=== PATIENT | female | born 1970 | race Caucasian/White ===

== ENCOUNTER → 2020-01-16 11:00 | Outpatient (BNVA) | payer BC, SELFPAY | PROVIDERS: Family Provider Nurse Practitioner Family; PCP Nurse Practitioner Family; Visit Provider Nurse Practitioner Family | DX: Z51.81 Encounter for therapeutic drug level monitoring (principal); R07.9 Chest pain, unspecified; J06.9 Acute upper respiratory infection, unspecified; F41.9 Anxiety disorder, unspecified; R07.82 Intercostal pain | CPT/HCPCS: 80048; 80076; 85025 ==

== ENCOUNTER → 2020-05-11 08:45 | Outpatient (BNVA) | payer BC, SELFPAY | PROVIDERS: Family Provider Nurse Practitioner Family; PCP Nurse Practitioner Family; Visit Provider Nurse Practitioner Family | DX: Z79.899 Other long term (current) drug therapy (principal); R68.89 Other general symptoms and signs | CPT/HCPCS: 80076 ==

== ENCOUNTER → 2020-09-26 15:03 | Outpatient (BNVA) | payer BC, SELFPAY | PROVIDERS: Family Provider Nurse Practitioner Family; PCP Nurse Practitioner Family; Visit Provider Registered Nurse | DX: Z11.59 Encounter for screening for other viral diseases (principal) | CPT/HCPCS: 87635 ==

== ENCOUNTER → 2020-12-04 09:57 | Outpatient (BNVA) | payer OTHER, SELFPAY | PROVIDERS: Family Provider Nurse Practitioner Family; PCP Nurse Practitioner Family; Visit Provider Family Medicine | DX: Z20.828 Contact with and (suspected) exposure to other viral communicable diseases (principal) | CPT/HCPCS: 87635 ==

== ENCOUNTER → 2021-08-21 09:21 | Outpatient (BNVA) | payer SELFPAY | PROVIDERS: Family Provider Nurse Practitioner Family; PCP Nurse Practitioner Family; Visit Provider Nurse Practitioner Family | DX: R20.0 Anesthesia of skin (principal); R20.2 Paresthesia of skin; R53.83 Other fatigue; F48.8 Other specified nonpsychotic mental disorders | CPT/HCPCS: 80048; 82607; 84443 ==

== ENCOUNTER → 2022-01-30 11:37 | Outpatient (BNVA) | payer OTHER, SELFPAY | PROVIDERS: Family Provider Nurse Practitioner Family; PCP Nurse Practitioner Family; Visit Provider Emergency Medicine | DX: R68.89 Other general symptoms and signs (principal) | CPT/HCPCS: 87400 ==

== ENCOUNTER → 2022-04-04 12:14 | Outpatient (BNVA) | payer OTHER, SELFPAY | PROVIDERS: Family Provider Nurse Practitioner Family; PCP Nurse Practitioner Family; Visit Provider Emergency Medicine | DX: M65.311 Trigger thumb, right thumb (principal); M25.511 Pain in right shoulder; G89.29 Other chronic pain; M25.512 Pain in left shoulder | CPT/HCPCS: 73030; 73130 ==

== ENCOUNTER 2022-05-29 11:40 | Day surgery (SDC) | payer OTHER, SELFPAY ==
[2022-05-29] MEDS: sodium chloride 0.9% 1,000 ML 30 ML IV (12:28)
--- NOTE | 2022-05-29 12:41 | P.ANESASSM_ITS ---
Pre-Anesthetic Assessment Height/Weight: Height 1.7 m Preop Diagnosis: Right Carpal tunnel syndrome, Trigger thumb And middle finger Operation Date: 05/29/22 13:20 Proposed Procedures p Right carpal tunnel release:[id number],Right trigger finger of right thumb release:[id number] trigger finger of right middle finger: 39085,G5 6.01,M65.311,M65.331(Right) - Willam Franco MD Familial anesthetic complications: NOne Was Beta Esthela taken within 24 hours: N/A Was Clonidine taken within 24 hours: N/A Last intake: Intake Last Liquid Date 05/28/22 Last Liquid Time 21:00 Last Solid Date 05/28/22 Last Solid Time 18:00 Social Tobacco and No alcohol Exam alert, oriented x 3, clear to auscultation bilaterally and regular rate & rhythm Airway Mallampati: Class II Dentition: loose (bottom teeth loose) Pulmonary H xacute bronchitis CV/HEM Hypertension None reported Hepatic None reported GI Gastroesophageal Reflux Disease Metabolic None reported Musc/skel None reported Neuropsych Neuropathy Anesthetic Plan ASA status: 2 Anesthesia: Regional (specify below) Risk of > 500 ml blood loss (7ml/kg in children): No Medications/Allergies Home Medications Medication Instructions Recorded Confirmed Last Taken Type sucralfate 1 gram tablet (Carafate) 1 g PO BID #30 tab 06/11/21 05/28/22 Unknown Rx amitriptyline 25 mg tablet 25 mg PO .at night 90 Days #90 tab 11/26/21 05/29/22 Unknown Rx atenolol 100 mg tablet 100 mg PO DAILY 90 Days #90 tab 11/26/21 05/29/22 05/29/22 Rx cyclobenzaprine 5 mg tablet 10 mg PO TID PRN #30 tab MDD 6 tabs 11/26/21 05/28/22 Unknown Rx hydrochlorothiazide 12.5 mg capsule 12.5 mg PO DAILY 90 Days #90 cap 11/26/21 05/29/22 05/29/22 Rx omeprazole 40 mg capsule,delayed 40 mg PO DAILY 90 Days #90 cap 11/26/21 05/29/22 05/28/22 Rx release diclofenac sodium 50 mg 50 mg PO BID #60 tab 04/04/22 05/28/22 Unknown Rx tablet,delayed release gabapentin 100 mg capsule 100 mg PO BID #60 cap 04/18/22 05/29/22 05/28/22 Rx ondansetron 4 mg disintegrating 4 mg PO Q6H PRN #12 tab 04/22/22 05/28/22 Unknown Rx tablet tizanidine 2 mg tablet 2 mg PO BID PRN #20 tab 04/22/22 05/28/22 Unknown Rx zolmitriptan 5 mg disintegrating 5 mg PO Q2H PRN #10 tab 04/22/22 05/28/22 Unknown Rx tablet Allergies Allergy/AdvReac Type Severity Reaction Status Date / Time No Known Allergies Allergy Verified 05/20/22 14:57 Current Medications Generic Name Dose Route Start Last Admin Trade Name Freq PRN Reason Stop Dose Admin Sodium Chloride 1,000 mls @ 30 mls/hr 05/29/22 12:00 05/29/22 12:28 Sodium Chloride 0.9% IV 05/30/22 11:59 30 mls/hr .Q24H CELENA Administration PFSH Anesthesia Medical History Attention or concentration deficit GERD (gastroesophageal reflux disease) Hypertension Medication monitoring encounter Puncture wound of finger Social History Smoking and tobacco status: current every day smoker Female Reproductive History Spontaneous abortions: No Data Anesthesia Cardiac Studies: No Data to Display
--- NOTE | 2022-05-29 13:09 | W.PM.OPSUD ---
Surgery/Procedure H&P Update DATE OF PROCEDURE: May 29, 2022 DATE H&P PERFORMED: 05/20/22 H&P UPDATE INFORMATION: I have reviewed H&P completed within last 30 days PREOP DIAGNOSIS: Right Carpal tunnel syndrome, Trigger thumb And middle finger PLANNED PROCEDURE: Operation Date: 05/29/22 13:20 Proposed Procedures p Right carpal tunnel release:48574,Right trigger finger of right thumb release:88579Nqisl trigger finger of right middle finger: 46104,G56.01,M65.311,M65.331(Right) - Willam Franco MD
[2022-05-29] MEDS: ceFAZolin 2,000 MG in sodium chloride 0.9% (plus) 50 ML 100 MG IV (13:15)
--- NOTE | 2022-05-29 14:08 | PM.OP ---
Operative Report Date of procedure: May 29, 2022 Pre-op diagnosis: Preop Diagnosis Right Carpal tunnel syndrome, Trigger thumb And middle finger Procedure done: Right carpal tunnel release Right thumb trigger thumb release Right middle finger trigger finger release Estimated blood loss (mL): 2 Tourniquet time (min): 26 Findings: No masses or space-occupying lesions were seen within the carpal tunnel. No degeneration was seen in the flexed tendons at the level of the A1 pulleys of the thumb or long finger. The tendon sheath were healthy without obvious degenerative Condition: stable Disposition: PACU Procedure: Patient was taken to the operating room and anesthesia provided by the anesthesia service. She was prepped and draped with the arm exposed. A timeout was performed. A 3 cm long incision was made in line with the fourth ray from the distal edge of the carpal tunnel extending proximally. The subcutaneous fat and palmar fascia was divided with a scalpel blade. Under loupe magnification the ulnar neurovascular bundle was identified distally. A hemostat could be passed under the transverse carpal ligament allowing the distal 25% to be divided. A slotted guide was then passed beneath the transverse carpal ligament and the middle 50% divided. Blunt scissors were then passed over the guide freeing the proximal ligament. A transverse incision was made over the level of a 1 chriss of the thumb in the palm over a distance of approximately a centimeter and a half. Under loupe magnification blunt dissection was accomplished down to the A1 chriss. With adequate visualization a scalpel was used to divide the central 4 mm of that structure. Blunt scissors were then used to extend the release approximately 5 mm proximally and 5 mm distally. Tendons were pulled the road and inspected to assure there healthy. A 1 centimeter and a half. Under loupe magnification blunt dissection was accomplished down to the A1 chriss of the long finger With adequate visualization a scalpel was used to divide the central 4mm of that structure. Blunt scissors were then used to extend the release approximately 5 mm proximally and 5 mm distally. Tendons were pulled the road and inspected to assure there healthy. Carpal tunnel wound edges were infiltrated with 10 cc of a half percent Marcaine solution. Trigger finger incisions were infiltrated with 3 cc of half percent Marcaine. Skin edges were reapproximated with 3-0 Prolene. Sterile dressings were applied. The patient was taken to the recovery room in stable condition
[2022-05-29 14:09] VITALS: BP 106/58; PULSE 73; RESP 18; TEMP 36.2; O2SAT 95
[2022-05-29 14:14] VITALS: BP 116/68; PULSE 74; RESP 17; O2SAT 94
[2022-05-29 14:20] VITALS: BP 135/61; PULSE 68; RESP 18; O2SAT 95
[2022-05-29 14:25] VITALS: BP 114/74; PULSE 66; RESP 18; TEMP 36.2; O2SAT 95
[2022-05-29 14:37] VITALS: BP 134/73; PULSE 62; RESP 18; TEMP 36.2; O2SAT 95
[2022-05-29] MEDS: HYDROcodone-acetaminophen 5-325 mg Tablet 1 TAB PO (15:05)
[2022-05-29 15:32] VITALS: BMI 25.0
--- NOTE | 2022-05-29 16:38 | ANE.PACU2 ---
Inpatient post-anesthesia follow up: Airway intact: Yes Vital signs: Temperature 97.2 F Pulse Rate 62 Respiratory Rate 18 Blood Pressure 134/73 Pulse Oximetry 95 Oxygen Delivery Me thod Room Air Oxygen Flow Rate Fraction of Inspir ed Oxygen Hydration adequate: Yes Nausea and vomiting: No Pain level: 1 Mental status: Baseline
== END 2022-05-29 15:20 | disposition home or self-care (01) ==
PROVIDERS: PCP Nurse Practitioner Family; Visit Provider Orthopaedic Surgery
PROC: (CPT 64721; principal; 2022-05-29 13:10)
DX: G56.01 Carpal tunnel syndrome, right upper limb (principal); M65.331 Trigger finger, right middle finger; M65.311 Trigger thumb, right thumb; I10 Essential (primary) hypertension; K21.9 Gastro-esophageal reflux disease without esophagitis; F17.210 Nicotine dependence, cigarettes, uncomplicated
CPT/HCPCS: 26055 ×2; 64721; J2704; J3010; J3490; J7030

== ENCOUNTER 2022-06-12 10:33 | Day surgery (SDC) | payer OTHER, SELFPAY ==
[2022-06-11 09:46] VITALS: BMI 25.0
[2022-06-12] VITALS (8 sets, daily range): BP systolic 131–150; BP diastolic 70–94; PULSE 6–78; RESP 14–18; TEMP 36.1–36.6; O2SAT 95–98
[2022-06-12] MEDS: sodium chloride 0.9% 1,000 ML 30 ML IV (10:57)
--- NOTE | 2022-06-12 12:03 | ANES.PREANE2 ---
Pre-Anesthetic Assessment Height/Weight: Height 1.7 m Weight 72.575 kg Temp Pulse Resp BP Pulse Ox 97.6 F 72 18 150/94 97 06/12/22 10:46 06/12/22 10:46 06/12/22 10:46 06/12/22 10:46 06/12/22 10:46 Preop Diagnosis: Left carpal tunnel syndrome Operation Date: 06/12/22 12:10 Proposed Procedures p Left Carpal Tunnel Release [id number],G56.00(Left) - Willam Franco MD Familial anesthetic complications: none Was Beta Esthela taken within 24 hours: Yes Was Clonidine taken within 24 hours: N/A Last intake: Intake Last Liquid Date 06/11/22 Last Liquid Time 20:00 Last Solid Date 06/11/22 Last Solid Time 20:00 Social Tobacco and No alcohol Exam alert, oriented x 3, clear to auscultation bilaterally and regular rate & rhythm Airway Submandibular: within normal limits Cervical ROM: within normal limits Mallampati: Class II Dentition: full CV/HEM Hypertension GI Gastroesophageal Reflux Disease Anesthetic Plan ASA status: 2 Anesthesia: MAC and Regional (specify below) (Em cruz) Medications/Allergies Home Medications Medication Instructions Recorded Confirmed Last Taken Type sucralfate 1 gram tablet (Carafate) 1 g PO BID #30 tab 06/11/21 06/11/22 06/11/22 Rx amitriptyline 25 mg tablet 25 mg PO .at night 90 Days #90 tab 11/26/21 06/12/22 06/10/22 Rx atenolol 100 mg tablet 100 mg PO DAILY 90 Days #90 tab 11/26/21 06/12/22 06/11/22 Rx cyclobenzaprine 5 mg tablet 10 mg PO TID PRN #30 tab MDD 6 tabs 11/26/21 06/12/22 06/11/22 Rx hydrochlorothiazide 12.5 mg capsule 12.5 mg PO DAILY 90 Days #90 cap 11/26/21 06/12/22 06/11/22 Rx omeprazole 40 mg capsule,delayed 40 mg PO DAILY 90 Days #90 cap 11/26/21 06/11/22 06/11/22 Rx release diclofenac sodium 50 mg 50 mg PO BID #60 tab 04/04/22 06/12/22 06/11/22 Rx tablet,delayed release gabapentin 100 mg capsule 100 mg PO BID #60 cap 04/18/22 06/12/22 06/11/22 Rx ondansetron 4 mg disintegrating 4 mg PO Q6H PRN #12 tab 04/22/22 06/11/22 06/11/22 Rx tablet tizanidine 2 mg tablet 2 mg PO BID PRN #20 tab 04/22/22 06/11/22 06/11/22 Rx zolmitriptan 5 mg disintegrating 5 mg PO Q2H PRN #10 tab 04/22/22 06/11/22 06/11/22 Rx tablet hydrocodone 5 mg-acetaminophen 325 1 tab PO Q4H #20 tab 05/29/22 06/11/22 06/11/22 Rx mg tablet Allergies Allergy/AdvReac Type Severity Reaction Status Date / Time No Known Allergies Allergy Verified 06/03/22 13:36 Current Medications Generic Name Dose Route Start Last Admin Trade Name Freq PRN Reason Stop Dose Admin Sodium Chloride 1,000 mls @ 30 mls/hr 06/12/22 10:45 06/12/22 10:57 Sodium Chloride 0.9% IV 06/13/22 10:44 30 mls/hr .Q24H CELENA Administration PFSH Anesthesia Medical History Attention or concentration deficit GERD (gastroesophageal reflux disease) Hypertension Medication monitoring encounter Puncture wound of finger Social History Smoking and tobacco status: current every day smoker Female Reproductive History Spontaneous abortions: No Data Anesthesia Cardiac Studies: No Data to Display
--- NOTE | 2022-06-12 12:12 | W.PM.OPSUD ---
Surgery/Procedure H&P Update DATE OF PROCEDURE: June 12, 2022 DATE H&P PERFORMED: 05/20/22 H&P UPDATE INFORMATION: I have reviewed H&P completed within last 30 days PREOP DIAGNOSIS: Left carpal tunnel syndrome PLANNED PROCEDURE: Operation Date: 06/12/22 12:10 Proposed Procedures p Left Carpal Tunnel Release 16625,G56.00(Left) - Willam Franco MD
[2022-06-12] MEDS: ceFAZolin 2,000 MG in sodium chloride 0.9% (plus) 50 ML 100 MG IV (12:13)
--- NOTE | 2022-06-12 12:58 | P.OP_ITS ---
Operative Report Date of procedure: June 12, 2022 Pre-op diagnosis: Preop Diagnosis Left carpal tunnel syndrome Post-op diagnosis: same Post-op diagnosis: Same Procedure done: Left carpal tunnel release Pathology: none sent Surgeon: Willam Franco Anesthesia: Nerve Block (Wagoner block) Estimated blood loss (mL): 2 Tourniquet time (min): 20 Findings: No masses or space-occupying lesions were seen within the carpal tunnel Condition: stable Disposition: PACU Procedure: Patient was taken to the operating room and anesthesia provided by the anesthesia service. She was prepped and draped with the arm exposed. A timeout was performed. A 3 cm long incision was made in line with the fourth ray from the distal edge of the carpal tunnel extending proximally. The subcutaneous fat and palmar fascia was divided with a scalpel blade. Under loupe magnification the ulnar neurovascular bundle was identified distally. A hemostat could be passed under the transverse carpal ligament allowing the distal 25% to be divided. A slotted guide was then passed beneath the transverse carpal ligament and the middle 50% divided. Blunt scissors were then passed over the guide freeing the proximal ligament. The tourniquet was deflated. Hemostasis provided with electrocautery. Wound edges were infiltrated with 10 cc of a half percent Marcaine solution. Skin edges were reapproximated with 3-0 Prolene. Sterile dressings were applied. The patient was taken to the recovery room in stable condition
--- NOTE | 2022-06-12 16:19 | ANE.PACU2 ---
Inpatient post-anesthesia follow up: Airway intact: Yes Vital signs: Temperature 97.8 F Pulse Rate 63 Respiratory Rate 14 Blood Pressure 138/89 Pulse Oximetry 98 Oxygen Delivery Me thod Room Air Oxygen Flow Rate Fraction of Inspir ed Oxygen Hydration adequate: Yes Nausea and vomiting: No Pain level: 1 Mental status: Baseline
== END 2022-06-12 13:55 | disposition home or self-care (01) ==
PROVIDERS: PCP Nurse Practitioner Family; Visit Provider Orthopaedic Surgery
PROC: (CPT 64721; principal; 2022-06-12 12:00)
DX: G56.02 Carpal tunnel syndrome, left upper limb (principal); K21.9 Gastro-esophageal reflux disease without esophagitis; I10 Essential (primary) hypertension; F17.210 Nicotine dependence, cigarettes, uncomplicated
CPT/HCPCS: 64721; J2250; J2704; J3490; J7030

== ENCOUNTER → 2022-06-25 08:50 | Outpatient (BNVA) | payer OTHER, SELFPAY | PROVIDERS: PCP Nurse Practitioner Family; Referring Provider Nurse Practitioner Family; Visit Provider Nurse Practitioner Family | DX: M25.571 Pain in right ankle and joints of right foot (principal); Z79.899 Other long term (current) drug therapy; G89.29 Other chronic pain; M25.572 Pain in left ankle and joints of left foot | CPT/HCPCS: 73610; 82977; 83615; 84450; 84460; 86038; 86431 ==

== ENCOUNTER → 2022-08-07 14:26 | Outpatient (BNVA) | payer OTHER, SELFPAY | PROVIDERS: PCP Nurse Practitioner Family; Referring Provider Nurse Practitioner Family; Visit Provider Internal Medicine | DX: I10 Essential (primary) hypertension (principal) | CPT/HCPCS: 72040; 80053; 82306; 82310; 82533; 82550; 82607; 82728; 82784; 83516; 83540; 83735; 83970; 84100; 84443; 84550; 85025; 85651; 86140; 86160; 86162; 86200; 86235; 86255; 86376; 86431; 86704; 86803; 87340 ==

== ENCOUNTER → 2022-09-10 09:06 | Outpatient (BNVA) | payer OTHER, SELFPAY | PROVIDERS: PCP Nurse Practitioner Family; Visit Provider Emergency Medicine | DX: R68.89 Other general symptoms and signs (principal) | CPT/HCPCS: 87400 ==

== ENCOUNTER 2022-10-27 08:37 | Outpatient (CLI) | payer OTHER, SELFPAY ==
--- NOTE | 2022-10-27 08:51 | XR_ITS ---
WS: [id number] EXAMINATION: XR chest 2V* [id number] HISTORY: Dry cough for the past 2 weeks ORDER DATE: 10/27/2022 8:51 AM COMPARISON: 10/04/2019 FINDINGS: The lungs are clear of infiltrate. The cardiac and mediastinal outlines are unremarkable. There are no significant pleural effusions . No significant abnormalities are noted in the spine or remainder of the bony thorax. XR/XR chest 2V* [id number] IMPRESSION: NO ACUTE PULMONARY CHANGE.
== END 2022-10-27 08:38 | disposition home or self-care (01) ==
PROVIDERS: PCP Nurse Practitioner Family; Visit Provider Nurse Practitioner Family
DX: R05.9 Cough, unspecified (principal)
CPT/HCPCS: 71046

== ENCOUNTER → 2022-12-08 13:42 | Outpatient (BNVA) | payer OTHER, SELFPAY | PROVIDERS: PCP Nurse Practitioner Family; Visit Provider Nurse Practitioner Family | DX: R76.8 Other specified abnormal immunological findings in serum (principal); Z79.899 Other long term (current) drug therapy | CPT/HCPCS: 80076 ==

== ENCOUNTER 2023-02-03 11:56 | Outpatient (CLI) | payer OTHER, SELFPAY | END 2023-02-03 11:57 | disposition home or self-care (01) | LOC: SLEEP 02-04 11:57 | PROVIDERS: PCP Nurse Practitioner Family; Visit Provider Nurse Practitioner Family | DX: R06.83 Snoring (principal); R53.83 Other fatigue; G47.33 Obstructive sleep apnea (adult) (pediatric) | CPT/HCPCS: G0399 ==

== ENCOUNTER → 2023-02-10 14:08 | Outpatient (BNVA) | payer OTHER, SELFPAY | PROVIDERS: PCP Nurse Practitioner Family; Visit Provider Nurse Practitioner Family | DX: J02.9 Acute pharyngitis, unspecified (principal); R05.9 Cough, unspecified; K21.00 Gastro-esophageal reflux disease with esophagitis, without bleeding; J06.9 Acute upper respiratory infection, unspecified; I10 Essential (primary) hypertension | CPT/HCPCS: 87426; 87880 ==

== ENCOUNTER → 2023-09-01 10:59 | Outpatient (BNVA) | payer OTHER, SELFPAY | PROVIDERS: PCP Nurse Practitioner Family; Visit Provider Nurse Practitioner Family | DX: R25.2 Cramp and spasm (principal); I10 Essential (primary) hypertension; R53.83 Other fatigue | CPT/HCPCS: 80053; 80061; 82306; 83735; 84443 ==

== ENCOUNTER 2023-11-26 06:40 | Outpatient (CLI) | payer OTHER, SELFPAY ==
--- NOTE | 2023-11-26 07:15 | MR_ITS ---
WS: [id number] MRI HEAD WITH CONTRAST TECHNIQUE: Sagittal T1, T2 axial, T2 axial FLAIR, axial susceptibility weighted imaging, axial diffus ion weighted images, and coronal T2 images were obtained. Pre and post-T1 axial and post T1 coronal i mages. ADC and FSPGR images. CLINICAL INFORMATION: R51.9 - Headache, unspecified COMPARISON: None. FINDINGS: No evidence of restricted diffusion to suggest acute ischemia. Ventricular system and basilar cistern s are patent. Minimal small vessel changes. No significant parenchymal volume loss. Normal posterior fossa. Normal vascular flow voids at the skull base. No extra-axial fluid collections. No evidence of mass or mass effect. No hemosiderin on susceptibly weighted images. Temporal lobes and hippocampal f ormations are normal in appearance. Normal optic chiasm and pituitary infundibulum. No abnormal gadol inium enhancement. Incidental cerebellar tonsillar ectopia. IMPRESSION: 1. No evidence of restricted diffusion to suggest acute ischemia. 2. Mild small vessel changes. No significant parenchymal volume loss. 3. No abnormal gadolinium enhancement. 4. No hemosiderin on susceptibly weighted images. 5. Incidental mild cerebellar tonsillar ectopia. 6. Mild disc bulging the upper cervical spine at C3-C4. This could be further evaluated with cervica l spine MRI.
[2023-11-26] MEDS: gadobenate dimeglumine 20 mL vial IV (07:45)
== END 2023-11-26 06:41 | disposition home or self-care (01) ==
LOC: RAD 06:40
PROVIDERS: PCP Nurse Practitioner Family; Visit Provider Nurse Practitioner Family
DX: R51.9 Headache, unspecified (principal)
CPT/HCPCS: 70553; A9577

== ENCOUNTER → 2023-12-15 09:13 | Outpatient (BNVA) | payer OTHER, SELFPAY | PROVIDERS: PCP Nurse Practitioner Family; Visit Provider Nurse Practitioner Family | DX: R05.9 Cough, unspecified (principal); R50.9 Fever, unspecified | CPT/HCPCS: 87400; 87426 ==

== ENCOUNTER → 2023-12-22 10:49 | Outpatient (BNVA) | payer OTHER, SELFPAY | PROVIDERS: PCP Nurse Practitioner Family; Visit Provider Nurse Practitioner Family | DX: U07.1 COVID-19 (principal); Z20.822 Contact with and (suspected) exposure to COVID-19 | CPT/HCPCS: 87400; 87426 ==

== ENCOUNTER → 2024-02-17 08:09 | Outpatient (BNVA) | payer OTHER, SELFPAY | PROVIDERS: PCP Nurse Practitioner Family; Visit Provider Nurse Practitioner Family | DX: E78.5 Hyperlipidemia, unspecified (principal); I10 Essential (primary) hypertension; E55.9 Vitamin D deficiency, unspecified | CPT/HCPCS: 80053; 80061; 82306 ==

== ENCOUNTER → 2024-08-17 08:18 | Outpatient (BNVA) | payer MEDICAID, SELFPAY | PROVIDERS: PCP Nurse Practitioner Family; Visit Provider Nurse Practitioner Family | DX: I10 Essential (primary) hypertension (principal); M25.50 Pain in unspecified joint | CPT/HCPCS: 80053; 80061; 84439; 84443; 86038; 86431 ==

== ENCOUNTER → 2024-08-26 08:41 | Outpatient (BNVA) | payer MEDICAID, SELFPAY | PROVIDERS: PCP Nurse Practitioner Family; Visit Provider Nurse Practitioner Family | DX: R73.9 Hyperglycemia, unspecified (principal) | CPT/HCPCS: 83036 ==

== ENCOUNTER → 2024-09-08 12:00 | Outpatient (BNVA) | payer MEDICAID, SELFPAY | PROVIDERS: PCP Nurse Practitioner Family; Referring Provider Nurse Practitioner Family; Visit Provider Psychiatry & Neurology Neurology | DX: G43.011 Migraine without aura, intractable, with status migrainosus (principal); R41.3 Other amnesia; G47.30 Sleep apnea, unspecified; M50.30 Other cervical disc degeneration, unspecified cervical region | CPT/HCPCS: 99212; 99214 ==

== ENCOUNTER → 2024-09-15 14:37 | Outpatient (BNVA) | payer MEDICAID, SELFPAY | PROVIDERS: PCP Nurse Practitioner Family; Visit Provider Orthopaedic Surgery | DX: M50.30 Other cervical disc degeneration, unspecified cervical region (principal); G89.29 Other chronic pain | CPT/HCPCS: 72050 ==

== ENCOUNTER → 2024-12-05 14:42 | Outpatient (BNVA) | payer MEDICAID, SELFPAY | PROVIDERS: PCP Nurse Practitioner Family; Visit Provider Nurse Practitioner Family | DX: I10 Essential (primary) hypertension (principal); E11.9 Type 2 diabetes mellitus without complications | CPT/HCPCS: 80053; 80061; 83036 ==

== ENCOUNTER 2025-05-01 14:18 | Outpatient (CLI) | payer MEDICAID, SELFPAY ==
--- NOTE | 2025-05-01 14:22 | XRR_ITS ---
PROCEDURE INFORMATION: Exam: XR Right Knee Exam date and time: 05/01/2025 2:36 PM Age: 54 years old Clinical indication: Pain; Knee; Right; Additional info: M25.561 - pain in right knee TECHNIQUE: Imaging protocol: Radiologic exam of the right knee. Views: 3 views. COMPARISON: CR XR ankle RT min 3V* [id number] 06/25/2022 8:58 AM FINDINGS: Bones/joints: Alignment is normal. Joint spaces are preserved. No acute fracture. No osteophytes. No joint effusion. Soft tissues: Visible soft tissues are unremarkable. XR/XR knee RT 3V* [id number] IMPRESSION: No pathologic findings.
--- NOTE | 2025-05-01 14:22 | XRR_ITS ---
PROCEDURE INFORMATION: Exam: XR Left Knee Exam date and time: 05/01/2025 2:36 PM Age: 54 years old Clinical indication: Pain; Knee; Left; Additional info: M25.569 - pain in unspecified knee TECHNIQUE: Imaging protocol: Radiologic exam of the left knee. Views: 3 views. COMPARISON: CR XR ankle LT min 3V* [id number] 06/25/2022 9:01 AM FINDINGS: Bones/joints: Alignment is normal. Joint spaces are preserved. No acute fracture. No osteophytes. No joint effusion. Soft tissues: Visible soft tissues are unremarkable. XR/XR knee LT 3V* [id number] IMPRESSION: No pathologic findings.
== END 2025-05-01 14:19 | disposition home or self-care (01) ==
LOC: RAD 14:20
PROVIDERS: PCP Nurse Practitioner Family; Visit Provider Nurse Practitioner Family
DX: M25.561 Pain in right knee (principal); M25.562 Pain in left knee; I10 Essential (primary) hypertension; M25.59 Pain in other specified joint
CPT/HCPCS: 73562; 80053; 80061; 84550; 86038; 86431

== ENCOUNTER → 2025-05-10 09:01 | Outpatient (BNVA) | payer MEDICAID, SELFPAY | PROVIDERS: PCP Nurse Practitioner Family; Visit Provider Nurse Practitioner Family | DX: E11.9 Type 2 diabetes mellitus without complications (principal) | CPT/HCPCS: 83036 ==

== ENCOUNTER 2025-05-11 09:55 | Outpatient (CLI) | payer MEDICAID, SELFPAY ==
--- NOTE | 2025-05-11 10:20 | MM_ITS ---
WS: [id number] BILATERAL SCREENING DIGITAL TOMOSYNTHESIS MAMMOGRAM WITH CAD HISTORY: Z12.39 - Encounter for other screening for malignant neop... COMPARISON: None available. Bilateral CC and MLO views with tomosynthesis and synthetic mammography submitted. Computer aided detection analyzed. Breast composition: There are scattered areas of fibroglandular density. No suspicious masses, microcalcifications or architectural distortion. Benign calcification RIGHT retroareolar region. No suspicious grouping of calcifications. MM/MM scr BI tomosynthesis [id number] IMPRESSION: BI-RADS: 2 - Benign. FOLLOW UP: 1 Year Follow-up
== END 2025-05-11 09:56 | disposition home or self-care (01) ==
PROVIDERS: PCP Nurse Practitioner Family; Visit Provider Nurse Practitioner Family
DX: Z12.39 Encounter for other screening for malignant neoplasm of breast (principal); M25.561 Pain in right knee; Z12.31 Encounter for screening mammogram for malignant neoplasm of breast; M25.562 Pain in left knee; R92.323 Mammographic fibroglandular density, bilateral breasts; G89.29 Other chronic pain; M22.2X1 Patellofemoral disorders, right knee; M22.2X2 Patellofemoral disorders, left knee
CPT/HCPCS: 73560; 73565; 77063; 77067

== ENCOUNTER → 2025-08-29 09:54 | Outpatient (BNVA) | payer OTHER, SELFPAY | PROVIDERS: PCP Nurse Practitioner Family; Visit Provider Nurse Practitioner Family | DX: R50.9 Fever, unspecified (principal); J02.9 Acute pharyngitis, unspecified | CPT/HCPCS: 87400; 87426; 87880 ==